=== PATIENT | female | born 1950 | race Caucasian/White ===

== ENCOUNTER 2017-11-27 07:19 | Day surgery (SDC) | payer MEDICARE, OTHER ==
[~2017-11-27] VITALS: Ht 167.6 cm; Wt 99.8 kg
[~2017-11-27 07:19] MED LIST: ALBU90OI6 INH; ALPR.25 PO; AMOX500 PO; ASCO500 PO; ATEN50 PO; BENADRYL25 MG PO; CALCIUM 1,0001 EACH PO; CHOL10002; CLAR500 PO; FENO145 PO; FERR325 PO; FISH1000 PO; FLUT.05NI; HYDRA25 PO; LEVSOD75 PO; LORA10 PO; METF500 PO; METPRE4DP PO; OMEP20ER PO; SERT25 PO; SIMV10 PO; SUCR1 PO; TOCO1000 PO
[2017-11-27] MEDS ORDERED: Aspir 8181 MG (07:54)
[2017-11-27] MEDS ORDERED: LOSA25 (07:55)
== END 2017-11-27 09:39 | disposition home or self-care (01) ==
LOC: ORSCSDS 07:19
PROVIDERS: Internal Medicine Gastroenterology
PROC: 0DBL8ZX Excision of Transverse Colon, Via Natural or Artificial Opening Endoscopic, Diagnostic (ICD-10-PCS; principal; 2017-11-27 08:30)
DX: Z12.11 Encounter for screening for malignant neoplasm of colon (principal); D12.3 Benign neoplasm of transverse colon; Z86.010 Personal history of colon polyps; K64.8 Other hemorrhoids; K64.4 Residual hemorrhoidal skin tags; Z80.0 Family history of malignant neoplasm of digestive organs; E11.9 Type 2 diabetes mellitus without complications; I10 Essential (primary) hypertension; E78.5 Hyperlipidemia, unspecified; K21.9 Gastro-esophageal reflux disease without esophagitis; F32.9 Major depressive disorder, single episode, unspecified; Z79.82 Long term (current) use of aspirin; Z79.84 Long term (current) use of oral hypoglycemic drugs; Z79.899 Other long term (current) drug therapy; K57.30 Diverticulosis of large intestine without perforation or abscess without bleeding
CPT/HCPCS: 82947; 88305; J0330; J1980; J2405

== ENCOUNTER 2018-02-10 02:20 | Emergency (ER) | payer MEDICARE, OTHER ==
[~2018-02-10 02:20] MED LIST changes: +Aspir 8181 MG; +LOSA25
[2018-02-10 06:14] LABS: BASOPHILS ABSOLUTE AUTO 0.08 K/mm3 (0.00-0.23); BASOPHILS PERCENT AUTO 1 % (0-2); EOSINOPHILS ABSOLUTE AUTO 0.36 K/mm3 (0.00-0.68); EOSINOPHILS PERCENT AUTO 5 % (0-6); Hematocrit 38.6 % (33.0-51.0); Hemoglobin 12.7 g/dL (11.5-16.0); IMMATURE GRAN ABSOLUTE AUTO 0.02 K/mm3 (0.00-0.10); IMMATURE GRAN PERCENT AUTO 0 % (0-1); LYMPHOCYTES ABSOLUTE AUTO 1.44 K/mm3 (0.84-5.20); LYMPHOCYTES PERCENT AUTO 19 % (21-46); MONOCYTES ABSOLUTE AUTO 0.68 K/mm3 (0.16-1.47); MONOCYTES PERCENT AUTO 9 % (4-13); Mean Corpuscular HGB 28.9 pg (26.0-34.0); Mean Corpuscular HGB Conc 32.9 g/dL (31.5-36.5); Mean Corpuscular Volume 88 fL (80-100); Mean Platelet Volume 9.3 fL (9.1-12.4); NEUTROPHILS ABSOLUTE AUTO 5.21 K/mm3 (1.96-9.15); NEUTROPHILS PERCENT AUTO 67 % (41-73); Platelet Count 237 K/mm3 (150-400); RDW Coefficient Variation 13.4 % (11.7-14.2); RDW Standard Deviation 43.3 fL (35.1-46.3); Red Blood Cell Count 4.39 M/mm3 (3.80-5.20); White Blood Cell Count 7.79 K/mm3 (4.00-11.30)
[2018-02-10 06:19] LABS: Alanine Aminotransfer (ALT/SGP 63 U/L (12-78); Albumin, Blood 4.1 g/dL (3.4-5.0); Albumin/Globulin Ratio 0.9 (0.8-1.8); Alk Phos 61 U/L (50-136); Anion Gap 8 mmol/L (6-16); Aspartate Aminotrans (AST/SGOT 33 U/L (12-37); Bilirubin, Total 0.3 mg/dL (0.1-1.0); Blood Urea Nitrogen 10 mg/dL (8-24); Bun/Creatinine Ratio 16.3 (12.0-20.0); CO2, Blood 25 mmol/L (21-32); Calcium, Blood 8.7 mg/dL (8.5-10.1); Chloride, Blood 104 mmol/L (98-108); Creatinine, Blood 0.61 mg/dL (0.40-1.00); Globulin, Blood 4.7 g/dL (2.2-4.0); Glomerular Filtration Rate >60 (60-); Glucose, Blood 187 mg/dL (70-99); Potassium, Blood 3.8 mmol/L (3.5-5.5); Sodium, Blood 137 mmol/L (136-145); Total Protein, Blood 8.8 g/dL (6.4-8.2); Troponin I <0.015 ng/mL (0.000-0.040)
== END 2018-02-10 03:45 | disposition home or self-care (01) ==
LOC: ER 02:20
DX: R07.89 Other chest pain (principal); I10 Essential (primary) hypertension
CPT/HCPCS: 71046; 80053; 83690; 84484; 85025; 93005; 93010; 99283

== ENCOUNTER → 2019-02-26 | Outpatient (CLI) | payer MEDICARE, OTHER ==
[~2019-02-26] MED LIST changes: +CEPH500 PO; +HYDCOR10 PO; +Istalol2.5 ML; +LATANOPROST2.5 ML OP; -LOSA25; +LOSA25 PO; +Pyridium100 MG PO
[2019-02-26 10:30] LABS: BASOPHILS ABSOLUTE AUTO 0.06 K/mm3 (0.00-0.23); BASOPHILS PERCENT AUTO 1 % (0-2); EOSINOPHILS ABSOLUTE AUTO 0.27 K/mm3 (0.00-0.68); EOSINOPHILS PERCENT AUTO 3 % (0-6); Hematocrit 38.4 % (33.0-51.0); Hemoglobin 12.3 g/dL (11.5-16.0); IMMATURE GRAN ABSOLUTE AUTO 0.04 K/mm3 (0.00-0.10); IMMATURE GRAN PERCENT AUTO 0 % (0-1); LYMPHOCYTES ABSOLUTE AUTO 1.12 K/mm3 (0.84-5.20); LYMPHOCYTES PERCENT AUTO 12 % (21-46); MONOCYTES ABSOLUTE AUTO 0.93 K/mm3 (0.16-1.47); MONOCYTES PERCENT AUTO 10 % (4-13); Mean Corpuscular HGB 28.5 pg (26.0-34.0); Mean Corpuscular Volume 89 fL (80-100); Mean Platelet Volume 9.3 fL (9.1-12.4); NEUTROPHILS ABSOLUTE AUTO 7.29 K/mm3 (1.96-9.15); NEUTROPHILS PERCENT AUTO 75 % (41-73); Platelet Count 261 K/mm3 (150-400); RDW Coefficient Variation 13.5 % (11.7-14.2); RDW Standard Deviation 43.9 fL (35.1-46.3); Red Blood Cell Count 4.32 M/mm3 (3.80-5.20); White Blood Cell Count 9.71 K/mm3 (4.00-11.30)
[2019-02-26 10:49] LABS: Alanine Aminotransfer (ALT/SGP 46 U/L (12-78); Albumin, Blood 3.9 g/dL (3.4-5.0); Albumin/Globulin Ratio 0.8 (0.8-1.8); Alk Phos 82 U/L (50-136); Anion Gap 7 mmol/L (6-16); Aspartate Aminotrans (AST/SGOT 21 U/L (12-37); Bilirubin, Total 0.4 mg/dL (0.1-1.0); Blood Urea Nitrogen 7 mg/dL (8-24); Bun/Creatinine Ratio 8.7 (12.0-20.0); CO2, Blood 27 mmol/L (21-32); Calcium, Blood 9.2 mg/dL (8.5-10.1); Chloride, Blood 102 mmol/L (98-108); Globulin, Blood 4.7 g/dL (2.2-4.0); Glomerular Filtration Rate >60 (60-); Glucose, Blood 165 mg/dL (70-99); Sodium, Blood 136 mmol/L (136-145); Total Protein, Blood 8.6 g/dL (6.4-8.2)
== END | disposition home or self-care (01) ==
LOC: LAB SHORT 09:17 → LAB 09:17
PROVIDERS: Physician Assistant
DX: R10.84 Generalized abdominal pain (principal)
CPT/HCPCS: 80053; 83690; 85025

== ENCOUNTER 2019-06-20 23:56 | Emergency (ER) | payer MEDICARE, OTHER ==
[~2019-06-20] VITALS: Ht 167.6 cm; Wt 97.5 kg
[~2019-06-20 23:56] MED LIST changes: -Aspir 8181 MG; +Aspir 8181 MG PO; -Istalol2.5 ML; +Istalol2.5 ML LEFTEYE
[2019-06-21 00:23] LABS: BASOPHILS ABSOLUTE AUTO 0.09 K/mm3 (0.00-0.23); BASOPHILS PERCENT AUTO 1 % (0-2); EOSINOPHILS ABSOLUTE AUTO 0.77 K/mm3 (0.00-0.68); EOSINOPHILS PERCENT AUTO 9 % (0-6); Hematocrit 40.6 % (33.0-51.0); IMMATURE GRAN ABSOLUTE AUTO 0.01 K/mm3 (0.00-0.10); IMMATURE GRAN PERCENT AUTO 0 % (0-1); LYMPHOCYTES ABSOLUTE AUTO 2.84 K/mm3 (0.84-5.20); LYMPHOCYTES PERCENT AUTO 34 % (21-46); MONOCYTES ABSOLUTE AUTO 0.68 K/mm3 (0.16-1.47); MONOCYTES PERCENT AUTO 8 % (4-13); Mean Corpuscular HGB 29.1 pg (26.0-34.0); Mean Corpuscular Volume 91 fL (80-100); Mean Platelet Volume 9.7 fL (9.1-12.4); NEUTROPHILS ABSOLUTE AUTO 4.09 K/mm3 (1.96-9.15); NEUTROPHILS PERCENT AUTO 48 % (41-73); Platelet Count 258 K/mm3 (150-400); RDW Coefficient Variation 13.8 % (11.7-14.2); Red Blood Cell Count 4.47 M/mm3 (3.80-5.20); White Blood Cell Count 8.48 K/mm3 (4.00-11.30)
[2019-06-21] MEDS ORDERED: HYDRA25 PO (00:27)
[2019-06-21] MEDS ORDERED: SERT25 PO (00:29)
[2019-06-21] MEDS ORDERED: BENADRYL25 MG PO (00:32)
[2019-06-21] MEDS ORDERED: [UNRECOGNIZED DRUG - OTHER] PO (00:33)
[2019-06-21] MEDS ORDERED: Vitamin B Comple1 EA PO (00:34)
[2019-06-21] MEDS ORDERED: PROBIOTIC1 EAC1 PO (00:34)
[2019-06-21] MEDS ORDERED: FISH OIL 1,001000 MG PO (00:35)
[2019-06-21] MEDS ORDERED: FLAX SEED OIL1000 MG PO (00:36)
[2019-06-21] MEDS ORDERED: [UNRECOGNIZED DRUG - OTHER] PO (00:38)
[2019-06-21] MEDS ORDERED: CALCIUM + D3 E1 EACH PO (00:38)
[2019-06-21] MEDS ORDERED: MULTI VITAMIN1 EACH PO (00:40)
[2019-06-21] MEDS ORDERED: CO Q10200 MG PO (00:40)
[2019-06-21 00:45] LABS: Alanine Aminotransfer (ALT/SGP 79 U/L (12-78); Albumin, Blood 4.5 g/dL (3.4-5.0); Alk Phos 71 U/L (50-136); Anion Gap 8 mmol/L (6-16); Aspartate Aminotrans (AST/SGOT 46 U/L (12-37); Bilirubin, Total 0.4 mg/dL (0.1-1.0); Blood Urea Nitrogen 19 mg/dL (8-24); Bun/Creatinine Ratio 23.1 (12.0-20.0); CO2, Blood 28 mmol/L (21-32); Calcium, Blood 9.3 mg/dL (8.5-10.1); Chloride, Blood 102 mmol/L (98-108); Creatinine, Blood 0.82 mg/dL (0.40-1.00); Globulin, Blood 4.6 g/dL (2.2-4.0); Glomerular Filtration Rate >60 (60-); Glucose, Blood 133 mg/dL (70-99); Potassium, Blood 3.7 mmol/L (3.5-5.5); Sodium, Blood 138 mmol/L (136-145); Total Protein, Blood 9.1 g/dL (6.4-8.2); Troponin I <0.015 ng/mL (0.000-0.040)
[2019-06-21] MEDS ORDERED: LIDO700A20 TOP (02:25)
[2019-06-21] MEDS ORDERED: CYCL10 PO (02:25)
[2019-06-21] MEDS ORDERED: IBUP600 PO (02:25)
== END 2019-06-21 02:40 | disposition home or self-care (01) ==
LOC: ER 23:56
PROVIDERS: Emergency Medicine
DX: I10 Essential (primary) hypertension (principal); Z88.8 Allergy status to other drugs, medicaments and biological substances; Z79.899 Other long term (current) drug therapy; Z79.84 Long term (current) use of oral hypoglycemic drugs; Z79.82 Long term (current) use of aspirin; D64.9 Anemia, unspecified; E11.9 Type 2 diabetes mellitus without complications
CPT/HCPCS: 36415; 71046; 80053; 84484; 85025; 85379; 93005; 93010; 96374; 96375; 99285-25; J0360; J1885; J2060; J3010

== ENCOUNTER → 2020-05-11 | Outpatient (CLI) | payer MEDICARE ==
[~2020-05-11] MED LIST changes: +CALCIUM + D3 E1 EACH PO; +CO Q10200 MG PO; +CYCL10 PO; +FISH OIL 1,001000 MG PO; +FLAX SEED OIL1000 MG PO; +IBUP600 PO; +LIDO700A20 TOP; +MULTI VITAMIN1 EACH PO; +PROBIOTIC1 EAC1 PO; +Vitamin B Comple1 EA PO; +[UNRECOGNIZED DRUG - OTHER] PO; +[UNRECOGNIZED DRUG - OTHER] PO
== END | disposition home or self-care (01) ==
LOC: LAB SHORT 15:40 → LAB 15:40
DX: R53.83 Other fatigue (principal); R00.2 Palpitations
CPT/HCPCS: 84443

== ENCOUNTER 2020-06-07 03:25 | Observation (INO) | payer MEDICARE ==
[~2020-06-07] VITALS: Ht 167.6 cm; Wt 97.1 kg
[~2020-06-07 03:25] MED LIST changes: -CALCIUM + D3 E1 EACH PO; -CHOL10002; +Calcium + Vita1 EACH PO; -FISH OIL 1,001000 MG PO; +FISH OIL 1,201200 MG PO; +LATA.005SO BOTHEYES; -LATANOPROST2.5 ML OP; +PROBIOTIC1 EA10 PO; -PROBIOTIC1 EAC1 PO; +VITAMIN D325 MC3 PO
[2020-06-07] MEDS ORDERED: GLIM4 PO (03:43)
[2020-06-07] MEDS ORDERED: ATIVAN0.5 MG PO (03:45)
[2020-06-07] MEDS ORDERED: ONDA4ODT MM (03:46)
[2020-06-07] MEDS ORDERED: CODACE30 PO (03:46)
[2020-06-07] MEDS ORDERED: CLAR500 PO (03:47)
[2020-06-07] MEDS ORDERED: CEPH500 PO (03:47)
[2020-06-07] MEDS ORDERED: ACYC400 PO (03:48)
[2020-06-07] MEDS ORDERED: Loratadine10 MG PO (03:48)
[2020-06-07 03:56] LABS: BASOPHILS ABSOLUTE AUTO 0.08 K/mm3 (0.00-0.23); BASOPHILS PERCENT AUTO 1 % (0-2); EOSINOPHILS ABSOLUTE AUTO 0.38 K/mm3 (0.00-0.68); EOSINOPHILS PERCENT AUTO 6 % (0-6); Hematocrit 38.7 % (33.0-51.0); Hemoglobin 12.4 g/dL (11.5-16.0); IMMATURE GRAN ABSOLUTE AUTO 0.01 K/mm3 (0.00-0.10); IMMATURE GRAN PERCENT AUTO 0 % (0-1); LYMPHOCYTES ABSOLUTE AUTO 2.25 K/mm3 (0.84-5.20); LYMPHOCYTES PERCENT AUTO 38 % (21-46); MONOCYTES ABSOLUTE AUTO 0.61 K/mm3 (0.16-1.47); MONOCYTES PERCENT AUTO 10 % (4-13); Mean Corpuscular HGB 29.1 pg (26.0-34.0); Mean Corpuscular Volume 91 fL (80-100); Mean Platelet Volume 9.6 fL (9.1-12.4); NEUTROPHILS ABSOLUTE AUTO 2.57 K/mm3 (1.96-9.15); NEUTROPHILS PERCENT AUTO 44 % (41-73); Platelet Count 207 K/mm3 (150-400); RDW Coefficient Variation 14.3 % (11.7-14.2); RDW Standard Deviation 47.5 fL (35.1-46.3); Red Blood Cell Count 4.26 M/mm3 (3.80-5.20)
[2020-06-07 04:16] LABS: Alanine Aminotransfer (ALT/SGP 84 U/L (12-78); Albumin, Blood 4.3 g/dL (3.4-5.0); Alk Phos 60 U/L (50-136); Anion Gap 7 mmol/L (6-16); Aspartate Aminotrans (AST/SGOT 50 U/L (12-37); Bilirubin, Total 0.4 mg/dL (0.1-1.0); Blood Urea Nitrogen 16 mg/dL (8-24); Bun/Creatinine Ratio 19.1 (12.0-20.0); CO2, Blood 27 mmol/L (21-32); Calcium, Blood 9.3 mg/dL (8.5-10.1); Chloride, Blood 100 mmol/L (98-108); Creatinine, Blood 0.84 mg/dL (0.40-1.00); Globulin, Blood 4.2 g/dL (2.2-4.0); Glomerular Filtration Rate >60 (60-); Glucose, Blood 157 mg/dL (70-99); Potassium, Blood 3.6 mmol/L (3.5-5.5); Sodium, Blood 134 mmol/L (136-145); Total Protein, Blood 8.5 g/dL (6.4-8.2); Troponin I <0.015 ng/mL (0.000-0.040)
[2020-06-07 08:07] LABS: CPK Creatine Kinase 77 U/L (26-193); Troponin I <0.015 ng/mL (0.000-0.040)
--- NOTE | 2020-06-07 12:02 | NUR ---
Echocardiogram completed.
[2020-06-07] MEDS ORDERED: CHROMIUM PIC1000 MC1 PO (12:19)
[2020-06-07 15:44] LABS: CPK Creatine Kinase 69 U/L (26-193)
[2020-06-07 15:45] LABS: Troponin I <0.015 ng/mL (0.000-0.040)
--- NOTE | 2020-06-07 18:02 | NUR ---
SHIFT SUMMARY: ED ADMIT ARRIVED TO ROOM VIA W/C AT 1205. REPORT FROM JOSELIN IN ED. PT IS A/O X4. PT REPORTS HER CHEST PAIN REMAINS A "LITTLE PAIN THAT COMES AND GOES ABOUT EVERY 15 MINUTES JUST LIKE IT HAS ALL DAY." TELE PLACED, NSR PER PCU SOLO MUSICIAN. NO ACUTE EVENTS TO REPORT THIS SHIFT. PLAN IS FOR A STRESS TEST TO START TOMORROW AT 1230; EARLY BREAKFAST TRAY ORDERED. WILL CONTINUE TO MONITOR AND REPORT TO ONCOMING SHIFT.
[2020-06-08 04:54] LABS: BASOPHILS ABSOLUTE AUTO 0.07 K/mm3 (0.00-0.23); BASOPHILS PERCENT AUTO 1 % (0-2); EOSINOPHILS ABSOLUTE AUTO 0.28 K/mm3 (0.00-0.68); EOSINOPHILS PERCENT AUTO 5 % (0-6); Hematocrit 37.4 % (33.0-51.0); Hemoglobin 12.1 g/dL (11.5-16.0); IMMATURE GRAN ABSOLUTE AUTO 0.01 K/mm3 (0.00-0.10); IMMATURE GRAN PERCENT AUTO 0 % (0-1); LYMPHOCYTES ABSOLUTE AUTO 1.63 K/mm3 (0.84-5.20); LYMPHOCYTES PERCENT AUTO 30 % (21-46); MONOCYTES ABSOLUTE AUTO 0.61 K/mm3 (0.16-1.47); MONOCYTES PERCENT AUTO 11 % (4-13); Mean Corpuscular HGB 28.6 pg (26.0-34.0); Mean Corpuscular HGB Conc 32.4 g/dL (31.5-36.5); Mean Corpuscular Volume 88 fL (80-100); Mean Platelet Volume 9.8 fL (9.1-12.4); NEUTROPHILS ABSOLUTE AUTO 2.88 K/mm3 (1.96-9.15); NEUTROPHILS PERCENT AUTO 53 % (41-73); Platelet Count 205 K/mm3 (150-400); RDW Coefficient Variation 14.3 % (11.7-14.2); RDW Standard Deviation 45.8 fL (35.1-46.3); Red Blood Cell Count 4.23 M/mm3 (3.80-5.20); White Blood Cell Count 5.48 K/mm3 (4.00-11.30)
[2020-06-08 05:16] LABS: Alanine Aminotransfer (ALT/SGP 89 U/L (12-78); Albumin/Globulin Ratio 0.9 (0.8-1.8); Alk Phos 55 U/L (50-136); Anion Gap 8 mmol/L (6-16); Aspartate Aminotrans (AST/SGOT 66 U/L (12-37); Bilirubin, Total 0.6 mg/dL (0.1-1.0); Blood Urea Nitrogen 14 mg/dL (8-24); Bun/Creatinine Ratio 18.9 (12.0-20.0); CO2, Blood 26 mmol/L (21-32); Chloride, Blood 102 mmol/L (98-108); Creatinine, Blood 0.74 mg/dL (0.40-1.00); Globulin, Blood 4.3 g/dL (2.2-4.0); Glomerular Filtration Rate >60 (60-); Glucose, Blood 166 mg/dL (70-99); Potassium, Blood 3.8 mmol/L (3.5-5.5); Sodium, Blood 136 mmol/L (136-145); Total Protein, Blood 8.3 g/dL (6.4-8.2)
--- NOTE | 2020-06-08 07:29 | NUR ---
06/07/202129 Pt is alert and oriented. Pt states she is still having the left chest "cramping" that lasts for 2-3 seconds and reaccures every 15-20 minutes. Pt BP was 150/91. Medicated with apresoline 10 mg and BP was 134/88 when rechecked. Pt is resting in room, ativan was given for anxiety.
--- NOTE | 2020-06-08 07:32 | NUR ---
Rn summary: Patient remains alert and oriented. Pt states she slept well and has had no chest cramping since sleeping. Pt did have apresoline repeated for BP of 140/90. Pt did c/o headache 4/10 which she says is unusual for her. Medicated at 0558 after hospitalist was reached. Pain up to 5/10 and pt is nausiated. Pt was medicated with tylenol 1000 mg and Zofran 4mg, and ice pack to back of neck. Nausia has resolved and headache has improved. Plan for stress test at noon. Call light in reach. Report given to Gurvinder TOLBERT.
--- NOTE | 2020-06-08 14:22 | NUR ---
Patient is sitting up in bed and alert. Patient tells me about her medical issues and plan of care. Patient shares about her family, her teresa and her career. Patient tells me how glorious it has been to be in the hospital and have a break from her busy life and responsibilities. Patient is thankful for the one visitor a day rule and the quiet this has afforded her. I listen empathically, reinforce helpful attitudes and practices, encourage self-care and provide prayer. Patient responds well and shows signs of an elevated mood. I will continue to remain available to patient and family.
--- NOTE | 2020-06-08 17:03 | NUR ---
SHIFT SUMMARY: PT COMPLETED RESTING PORTION OF HER STRESS TEST TODAY. PART 2 WILL BE TOMORROW IN THE AM (EXACT TIME NOT CONFIRMED). PT AWARE SHE IS TO BE NPO AT MIDNIGHT EXCEPT WATER AND MEDS WELL NO CAFFEINE AFTER 2100 THIS EVENING. PT C/O HEADACHE AND NAUSEA OFF AND ON THROUGHOUT THE DAY. MEDICATED PER EMAR. PT STATES SHE THINKS HER HIGH BLOOD PRESSURE IS THE PROBLEM AND REQUESTED A CHANGE TO HER BP MEDS. HYDRALAZINE INCREASED FROM 10 MG TO 25 MG PO Q6H PRN SBP >140 AND PT IS HAPPY WITH THIS CHANGE. BLOOD SUGARS THIS AM AND AFTERNOON WERE IN THE 200'S; DIET CHANGED TO ADA/CARDIAC. PT CURRENTLY RESTING IN BED, CALL LIGHT IN REACH. WILL CONTINUE TO MONITOR AND REPORT TO ONCOMING RN.
--- NOTE | 2020-06-09 06:12 | NUR ---
SHIFT SUMMARY: PT IS ALERT AND ORIENTED. PT IS CALM AND COOPERATIVE WITH CARE. PT IS UP INDEPENDENTLY IN THE ROOM. PT CALLS APPROPRIATELY. PT REPORTS NAUSEA ON ONE OCCASION, GAVE PRN ZOFRAN. PT REPORTS HEADACHE ON SEVERAL OCCASIONS, GAVE PRN IBUPROFEN AND TYLENOL. PT NPO AFTER MIDNIGHT FOR 2ND PART OF STRESS TEST TODAY, ALSO NO CAFFEINE. PT DENIES ANY SOB OR VOMITING. PT SLEPT MUCH OF THE NIGHT WHEN NOT DISTURBED. NO ACUTE CHANGES OR COMPLICATIONS OVERNIGHT. BED IN LOW POSITION, CALL LIGHT WITHIN REACH. WILL REPORT TO DAY NURSE.
--- NOTE | 2020-06-09 07:55 | NUR ---
NOTIFIED DR. PANDYA OF BP 159/103. RECEIVED VERBAL ORDER TO CHANGE PARAMETER FROM "> SBP 140" TO "> SBP 160" FOR HYDRALIZINE
--- NOTE | 2020-06-09 10:27 | NUR ---
NOTIFIED DR. PANDYA OF BP 186/103 AND C/O HEADACHE. PO HYDRALIZINE CHANGED TO IV Q4P AND TORADOL 15MG IV NOW VIA VERBAL ORDER.
--- NOTE | 2020-06-09 10:51 | NUR ---
RECEIVED VERBAL ORDER FROM DR. PANDYA FOR ONE TIME DOSE OF ATIVAN IV 0.5MG FOR PREPROCEDURE.
--- NOTE | 2020-06-09 11:47 | NUR ---
DR. PANDYA NOTIFIED RE BP 159/96, HR 106. ORDER RECEIVED TO START ATENOLOL NOW AND BID. PER DR. PANDYA, PATIENT IS OKAY TO HAVE LEXISCAN STRESS TEST INSTEAD TREADMILL.
--- NOTE | 2020-06-09 18:42 | NUR ---
Discharge Summary A/Ox4, patient has been very anxious today stating her normal BP is 110/84. Received multiple orders to control blood pressure. Patient has been so appreciative of the care received as her blood pressure is more controlled t/o the day. Medicated x 3 for SILVA. Once blood pressure improved, SILVA symptoms dissipated per patient. Discharged to home. Reviewed discharge paperwork with patient. No questions at this time. IV removed, WNL. Referrals completed by desk assistant Alex. Escorted by VOCATIONAL TECHNICAL EDUCATION DIRECTOR via w/c, transported home via personal vehicle. Personal property bagged by patient and sent home.
== END 2020-06-09 18:39 | disposition home or self-care (01) ==
LOC: ER 03:25 → ERHOLD 03:26 → MEDS 12:05
PROVIDERS: Emergency Medicine; ADMIT Internal Medicine
DX: R07.9 Chest pain, unspecified (principal); I10 Essential (primary) hypertension; E78.5 Hyperlipidemia, unspecified; E11.9 Type 2 diabetes mellitus without complications; E03.9 Hypothyroidism, unspecified; F32.9 Major depressive disorder, single episode, unspecified; F41.9 Anxiety disorder, unspecified; Z79.82 Long term (current) use of aspirin; Z79.899 Other long term (current) drug therapy; Z79.84 Long term (current) use of oral hypoglycemic drugs; Z88.8 Allergy status to other drugs, medicaments and biological substances; F43.10 Post-traumatic stress disorder, unspecified; Z87.42 Personal history of other diseases of the female genital tract
CPT/HCPCS: 36415; 71046; 78452; 80053; 82550; 82947; 83880; 84484; 85025; 93005; 93010; 93017; 93306; 96372; 96374; 96375; 96376; 99285-25; A9270-GY; A9500; G0378; J0360; J0706; J1650; J1885; J2060; J2405; J2785; Q0163

== ENCOUNTER 2020-09-03 21:36 | Emergency (ER) | payer MEDICARE ==
[~2020-09-03] VITALS: Ht 167.6 cm; Wt 97.1 kg
[~2020-09-03 21:36] MED LIST changes: +ACYC400 PO; +ATIVAN0.5 MG PO; +CHROMIUM PIC1000 MC1 PO; +CODACE30 PO; +GLIM4 PO; +Loratadine10 MG PO; +ONDA4ODT MM
== END 2020-09-04 00:01 | disposition home or self-care (01) ==
LOC: ER 21:36
DX: R05 Cough (principal); R07.0 Pain in throat; I10 Essential (primary) hypertension; E78.5 Hyperlipidemia, unspecified; E03.9 Hypothyroidism, unspecified; E11.9 Type 2 diabetes mellitus without complications; F32.9 Major depressive disorder, single episode, unspecified; F41.9 Anxiety disorder, unspecified; Z79.899 Other long term (current) drug therapy; Z79.84 Long term (current) use of oral hypoglycemic drugs; Z79.82 Long term (current) use of aspirin; Z88.8 Allergy status to other drugs, medicaments and biological substances
CPT/HCPCS: 36415; 96374; 99283-25; J1100

== ENCOUNTER 2021-02-26 08:31 | Day surgery (SDC) | payer MEDICARE ==
[~2021-02-26] VITALS: Ht 167.6 cm; Wt 98.9 kg
--- NOTE | 2021-02-26 09:07 | NUR ---
02/26/21 0907 Waleska Ribeiro 1 TRY RIGHT HAND VALVE BLEW 2 TRY RIGHT WRIST VALVE
== END 2021-02-26 10:18 | disposition home or self-care (01) ==
LOC: ORSCSDS 08:31
PROVIDERS: Internal Medicine Gastroenterology
PROC: 0DBL8ZX Excision of Transverse Colon, Via Natural or Artificial Opening Endoscopic, Diagnostic (ICD-10-PCS; principal; 2021-02-26 09:45)
DX: Z12.11 Encounter for screening for malignant neoplasm of colon (principal); Z86.010 Personal history of colon polyps; D12.3 Benign neoplasm of transverse colon; K64.8 Other hemorrhoids; E11.9 Type 2 diabetes mellitus without complications; I10 Essential (primary) hypertension; D64.9 Anemia, unspecified; K21.9 Gastro-esophageal reflux disease without esophagitis; E55.9 Vitamin D deficiency, unspecified; F32.9 Major depressive disorder, single episode, unspecified; Z79.899 Other long term (current) drug therapy
CPT/HCPCS: 82947; 88305; J2704; J7120

== ENCOUNTER 2021-06-23 15:58 | Emergency (ER) | payer MEDICARE ==
[~2021-06-23] VITALS: Ht 167.6 cm; Wt 97.5 kg
[2021-06-23] MEDS ORDERED: METF500 PO (18:06)
[2021-06-23] MEDS ORDERED: GLIM4 PO (18:06)
[2021-06-23] MEDS ORDERED: OMEP20ER PO (18:06)
[2021-06-23] MEDS ORDERED: ATEN25 PO (18:06)
[2021-06-23] MEDS ORDERED: SERT25 PO (18:07)
[2021-06-23] MEDS ORDERED: ZOCOR20 MG PO (18:07)
[2021-06-23] MEDS ORDERED: HYDCOR10 PO (18:07)
[2021-06-23] MEDS ORDERED: LORA.5 PO (18:07)
[2021-06-23] MEDS ORDERED: LEVSOD75 PO (18:07)
[2021-06-23] MEDS ORDERED: PIOG30 PO (18:07)
[2021-06-23] MEDS ORDERED: LATANOPROST 0.7.5 M3 (18:08)
== END 2021-06-23 18:28 | disposition home or self-care (01) ==
LOC: ER 15:58
DX: S80.11XA Contusion of right lower leg, initial encounter (principal); M79.661 Pain in right lower leg; Z88.8 Allergy status to other drugs, medicaments and biological substances; Z79.899 Other long term (current) drug therapy; Z79.84 Long term (current) use of oral hypoglycemic drugs; W22.8XXA Striking against or struck by other objects, initial encounter
CPT/HCPCS: 93971; 99283-25

== ENCOUNTER → 2022-02-03 | Outpatient (CLI) | payer MEDICARE ==
[~2022-02-03] MED LIST changes: +ATEN25 PO; +LATANOPROST 0.7.5 M3; +LORA.5 PO; +PIOG30 PO; +ZOCOR20 MG PO
[2022-02-03 11:51] LABS: Source, Urine Clean Catch
[2022-02-03 12:55] LABS: Appearance, Urine Clear (Clear); Blood, Urine 4+ (Neg); Glucose Qualitative, Urine Neg (Neg); Ketones, Urine Neg (Neg); Leukocyte Esterase, Urine 1+ (Neg); Nitrite, Urine Pos (Neg); Protein, Urine 2+ (Neg); Specific Gravity, Urine 1.015 (1.003-1.022); Urobilinogen, Urine 3+ (Normal)
[2022-02-03 13:06] LABS: Bilirubin, Urine 3+ (Neg); Color, Urine Amber (P-Yellow)
[2022-02-03 13:07] LABS: Bacteria Rare /hpf; Squamous Epithelial Cells Few /hpf (Few)
== END | disposition home or self-care (01) ==
LOC: LAB 11:50 → LAB SHORT 11:50 → LAB FUT 02-03 11:20
PROVIDERS: Physician Assistant
DX: N39.0 Urinary tract infection, site not specified (principal)
CPT/HCPCS: 81001; 87086

== ENCOUNTER → 2022-06-10 | Outpatient (CLI) | payer MEDICARE ==
[2022-06-10 11:39] LABS: Albumin, Blood 4.4 g/dL (3.4-5.0); Bilirubin, Total 0.5 mg/dL (0.1-1.0); Bun/Creatinine Ratio 21.8 (12.0-20.0); Calcium, Blood 9.7 mg/dL (8.5-10.1); Creatinine, Blood 0.64 mg/dL (0.40-1.00); Globulin, Blood 4.2 g/dL (2.2-4.0); Potassium, Blood 4.4 mmol/L (3.5-5.5); Total Protein, Blood 8.6 g/dL (6.4-8.2)
== END | disposition home or self-care (01) ==
LOC: LAB SHORT 10:30 → LAB 10:30
PROVIDERS: Nurse Practitioner Family
DX: E86.0 Dehydration (principal); E87.1 Hypo-osmolality and hyponatremia
CPT/HCPCS: 80053

== ENCOUNTER → 2022-08-04 | Outpatient (CLI) | payer MEDICARE ==
[2022-08-04 13:04] LABS: Albumin, Blood 4.4 g/dL (3.4-5.0); Albumin/Globulin Ratio 1.1 (0.8-1.8); Bilirubin, Total 0.4 mg/dL (0.1-1.0); Bun/Creatinine Ratio 21.3 (12.0-20.0); Calcium, Blood 9.7 mg/dL (8.5-10.1); Creatinine, Blood 0.8 mg/dL (0.40-1.00); Globulin, Blood 3.9 g/dL (2.2-4.0); Potassium, Blood 4.8 mmol/L (3.5-5.5); Total Protein, Blood 8.3 g/dL (6.4-8.2)
== END | disposition home or self-care (01) ==
LOC: LAB SHORT 10:28 → LAB FUT 07-14 15:00
PROVIDERS: Naturopath
DX: E87.1 Hypo-osmolality and hyponatremia (principal)
CPT/HCPCS: 36415; 80053

== ENCOUNTER → 2023-07-23 | Outpatient (CLI) | payer MEDICARE | LOC: LAB 10:00 → LAB SHORT 10:00 | DX: N39.0 Urinary tract infection, site not specified (principal) | CPT/HCPCS: 87086 ==

== ENCOUNTER → 2023-08-04 | Outpatient (CLI) | payer MEDICARE | END | disposition home or self-care (01) | LOC: LAB SHORT 14:30 → LAB 14:30 | DX: R30.0 Dysuria (principal); R35.0 Frequency of micturition | CPT/HCPCS: 87086 ==

== ENCOUNTER → 2023-08-28 | Outpatient (CLI) | payer MEDICARE | LOC: LAB 10:16 → LAB SHORT 10:16 | DX: R30.0 Dysuria (principal) | CPT/HCPCS: 87086 ==

== ENCOUNTER → 2023-09-03 | Outpatient (CLI) | payer MEDICARE ==
[~2023-09-03] MED LIST changes: +PHENA200 PO
[2023-09-03 13:09] LABS: Appearance, Urine Clear (Clear); Bilirubin, Urine Neg (Neg); Blood, Urine Neg (Neg); Color, Urine Yellow (P-Yellow); Glucose Qualitative, Urine Neg (Neg); Ketones, Urine Neg (Neg); Leukocyte Esterase, Urine Neg (Neg); Nitrite, Urine Neg (Neg); Protein, Urine 1+ (Neg); Specific Gravity, Urine 1.015 (1.003-1.022); Urobilinogen, Urine NORM (Normal)
== END | disposition home or self-care (01) ==
LOC: LAB 08:53 → LAB SHORT 08:53
PROVIDERS: Urology
DX: N39.0 Urinary tract infection, site not specified (principal)
CPT/HCPCS: 87086

== ENCOUNTER 2023-09-07 18:25 | Emergency (ER) | payer MEDICARE ==
[~2023-09-07] VITALS: Ht 167.6 cm; Wt 98.0 kg
[~2023-09-07 18:25] MED LIST changes: -PHENA200 PO
[2023-09-07 18:33] VITALS: BP 165/85
[2023-09-07 19:04] LABS: BASOPHILS ABSOLUTE AUTO 0.07 K/mm3 (0.00-0.23); BASOPHILS PERCENT AUTO 1 % (0-2); EOSINOPHILS ABSOLUTE AUTO 0.48 K/mm3 (0.00-0.68); EOSINOPHILS PERCENT AUTO 5 % (0-6); Hematocrit 35.6 % (33.0-51.0); Hemoglobin 11.8 g/dL (11.5-16.0); IMMATURE GRAN ABSOLUTE AUTO 0.03 K/mm3 (0.00-0.10); IMMATURE GRAN PERCENT AUTO 0 % (0-1); LYMPHOCYTES ABSOLUTE AUTO 1.56 K/mm3 (0.84-5.20); LYMPHOCYTES PERCENT AUTO 16 % (21-46); MONOCYTES ABSOLUTE AUTO 0.97 K/mm3 (0.16-1.47); MONOCYTES PERCENT AUTO 10 % (4-13); Mean Corpuscular HGB 29.6 pg (26.0-34.0); Mean Corpuscular HGB Conc 33.1 g/dL (31.5-36.5); Mean Corpuscular Volume 89 fL (80-100); Mean Platelet Volume 9.2 fL (9.1-12.4); NEUTROPHILS ABSOLUTE AUTO 6.69 K/mm3 (1.96-9.15); NEUTROPHILS PERCENT AUTO 68 % (41-73); Platelet Count 258 K/mm3 (150-400); RDW Coefficient Variation 13.8 % (11.7-14.2); RDW Standard Deviation 45.2 fL (35.1-46.3); Red Blood Cell Count 3.98 M/mm3 (3.80-5.20)
[2023-09-07 19:23] LABS: Albumin, Blood 4.2 g/dL (3.4-5.0); Albumin/Globulin Ratio 0.9 (0.8-1.8); Bilirubin, Total 0.3 mg/dL (0.1-1.0); Bun/Creatinine Ratio 18.2 (12.0-20.0); Calcium, Blood 9.3 mg/dL (8.5-10.1); Creatinine, Blood 0.94 mg/dL (0.40-1.00); Globulin, Blood 4.7 g/dL (2.2-4.0); Potassium, Blood 4.2 mmol/L (3.5-5.5); Total Protein, Blood 8.9 g/dL (6.4-8.2)
[2023-09-07] MEDS ORDERED: PHENA200 PO (22:56)
[2023-09-07] MEDS ORDERED: CEPH500 PO (22:56)
== END 2023-09-07 23:54 | disposition home or self-care (01) ==
LOC: ER 18:25
PROVIDERS: Student in an Organized Health Care Education/Training Program
DX: N12 Tubulo-interstitial nephritis, not specified as acute or chronic (principal)
CPT/HCPCS: 80053; 81001; 85025; 87077; 87086; 87186; 96365; 99284-25; A9270; J0696

== ENCOUNTER → 2023-09-07 | Outpatient (CLI) | payer MEDICARE ==
[2023-09-07 09:26] LABS: Source, Urine Voided
[2023-09-07 10:33] LABS: Bilirubin, Urine Neg (Neg); Blood, Urine 5+ (Neg); Glucose Qualitative, Urine Neg (Neg); Ketones, Urine Neg (Neg); Leukocyte Esterase, Urine 3+ (Neg); Nitrite, Urine Neg (Neg); Protein, Urine 2+ (Neg); Specific Gravity, Urine 1.015 (1.003-1.022); Urobilinogen, Urine NORM (Normal)
[2023-09-07 10:50] LABS: Appearance, Urine Cloudy (Clear); Bacteria Few /hpf; Color, Urine Yellow (P-Yellow); Red Blood Cells, Urine TNTC /hpf (0-2); Squamous Epithelial Cells Not Seen /hpf (Few); White Blood Cells, Urine TNTC /hpf (0-5)
== END ==
LOC: LAB SHORT 09:24 → LAB 09:24
PROVIDERS: Urology
DX: N39.0 Urinary tract infection, site not specified (principal)
CPT/HCPCS: 81001; 87077; 87086; 87186

== ENCOUNTER → 2023-09-16 | Outpatient (CLI) | payer MEDICARE ==
[~2023-09-16] MED LIST changes: +PHENA200 PO
[2023-09-16 15:58] LABS: Appearance, Urine Clear (Clear); Bilirubin, Urine Neg (Neg); Blood, Urine Neg (Neg); Color, Urine Yellow (P-Yellow); Glucose Qualitative, Urine Neg (Neg); Ketones, Urine Neg (Neg); Leukocyte Esterase, Urine Neg (Neg); Nitrite, Urine Neg (Neg); Protein, Urine Neg (Neg); Specific Gravity, Urine 1.005 (1.003-1.022); Urobilinogen, Urine NORM (Normal)
== END | disposition home or self-care (01) ==
LOC: LAB 15:06 → LAB SHORT 15:06
PROVIDERS: Urology
DX: N39.0 Urinary tract infection, site not specified (principal)
CPT/HCPCS: 81003; 87086

== ENCOUNTER → 2023-10-20 | Outpatient (CLI) | payer MEDICARE ==
[2023-10-20 16:32] LABS: Appearance, Urine Clear (Clear); Blood, Urine Neg (Neg); Glucose Qualitative, Urine 2+ (Neg); Ketones, Urine Neg (Neg); Leukocyte Esterase, Urine 1+ (Neg); Nitrite, Urine Pos (Neg); Protein, Urine Neg (Neg); Urobilinogen, Urine 1+ (Normal)
[2023-10-20 16:57] LABS: Bilirubin, Urine 1+ (Neg); Color, Urine Orange (P-Yellow)
[2023-10-20 16:59] LABS: Bacteria Many /hpf; Squamous Epithelial Cells Mod /hpf (Few); Transitional Epithelial Cells Few /hpf (0-Rare)
== END ==
LOC: LAB 14:05 → LAB SHORT 14:05
PROVIDERS: Urology
DX: N39.0 Urinary tract infection, site not specified (principal)
CPT/HCPCS: 81001; 87086

== ENCOUNTER → 2023-11-02 | Outpatient (CLI) | payer MEDICARE ==
[2023-11-02 18:41] LABS: Microalb/Creat Ratio UR, Rand Unable to Calculate mg/g (0.000-30.000); Microalbumin, Random Urine <5.000 mg/L (0.000-20.000)
== END ==
LOC: LAB 14:40 → LAB SHORT 14:40
PROVIDERS: Internal Medicine Endocrinology, Diabetes & Metabolism
DX: E11.65 Type 2 diabetes mellitus with hyperglycemia (principal)
CPT/HCPCS: 82043; 82570

== ENCOUNTER → 2023-11-03 | Outpatient (CLI) | payer MEDICARE ==
[2023-11-07 05:46] LABS: CREATININE,URINE - PER VOLUME 50 mg/dL; DOPAMINE,URINE - PER VOLUME 59 ug/L; DOPAMINE,URINE - RATIO TO CRT 118 ug/g CRT (0-250); EPINEPHRINE,URINE - PER VOLUME 2 ug/L; EPINEPHRINE,URN - RATIO TO CRT 4 ug/g CRT (0-20); HOURS COLLECTED Not Provided hr; NOREPINEPHRINE,UR - PER VOLUME 22 ug/L; NOREPINEPHRINE,URN/CRT RATIO 44 ug/g CRT (0-45); TOTAL VOLUME Not Provided mL
[2023-11-09 05:37] LABS: CREATININE,URINE - PER VOLUME 50 mg/dL; HOURS COLLECTED Not Provided hr; METANEPHRINE,UR - RATIO TO CRT 62 ug/g CRT (0-300); METANEPHRINE,URN - PER VOLUME 31 ug/L; NORMETANEPHRINE,U - PER VOLUME 166 ug/L; NORMETANEPHRINE,URN/CRT RATIO 332 ug/g CRT (0-400); TOTAL VOLUME Not Provided mL
== END ==
LOC: LAB SHORT 13:35 → LAB 13:35
PROVIDERS: Internal Medicine Endocrinology, Diabetes & Metabolism
DX: I15.9 Secondary hypertension, unspecified (principal)
CPT/HCPCS: 82384; 83835

== ENCOUNTER → 2023-12-07 | Outpatient (CLI) | payer MEDICARE ==
[2023-12-07 18:47] LABS: Appearance, Urine Cloudy (Clear); Bilirubin, Urine Neg (Neg); Blood, Urine 3+ (Neg); Color, Urine Yellow (P-Yellow); Glucose Qualitative, Urine Neg (Neg); Ketones, Urine Neg (Neg); Leukocyte Esterase, Urine 3+ (Neg); Nitrite, Urine Pos (Neg); Protein, Urine 2+ (Neg); Specific Gravity, Urine 1.015 (1.003-1.022); Urobilinogen, Urine NORM (Normal)
[2023-12-07 18:55] LABS: Bacteria Many /hpf; Red Blood Cells, Urine 0-2 /hpf (0-2); Squamous Epithelial Cells Rare /hpf (Few); Transitional Epithelial Cells Rare /hpf (0-Rare); White Blood Cells, Urine TNTC /hpf (0-5)
== END ==
LOC: LAB SHORT 16:00 → LAB 16:00
PROVIDERS: Urology
DX: N39.0 Urinary tract infection, site not specified (principal)
CPT/HCPCS: 81001; 87077; 87086; 87186

== ENCOUNTER → 2023-12-31 | Outpatient (CLI) | payer MEDICARE ==
[2023-12-31 12:19] LABS: Appearance, Urine Clear (Clear); Bilirubin, Urine Neg (Neg); Blood, Urine Neg (Neg); Color, Urine Yellow (P-Yellow); Glucose Qualitative, Urine Neg (Neg); Ketones, Urine Neg (Neg); Leukocyte Esterase, Urine 3+ (Neg); Nitrite, Urine Neg (Neg); Protein, Urine Neg (Neg); Specific Gravity, Urine 1.015 (1.003-1.022); Urobilinogen, Urine NORM (Normal); pH, Urine 6.5 (5.0-8.0)
[2023-12-31 12:52] LABS: Bacteria Few /hpf; Red Blood Cells, Urine 0-2 /hpf (0-2); Squamous Epithelial Cells Few /hpf (Few); Transitional Epithelial Cells Few /hpf (0-Rare)
== END ==
LOC: LAB 09:40 → LAB SHORT 09:40
PROVIDERS: Urology
DX: N39.0 Urinary tract infection, site not specified (principal)
CPT/HCPCS: 81001; 87077; 87086; 87186

== ENCOUNTER → 2024-01-19 | Outpatient (CLI) | payer MEDICARE ==
[2024-01-22 13:44] LABS: CREATININE,URINE - PER 24H 1178 mg/d (500-1400); CREATININE,URINE - PER VOLUME 38 mg/dL; HOURS COLLECTED 24 hr; METANEPHRINE,UR - RATIO TO CRT 47 ug/g CRT (0-300); METANEPHRINE,URINE - PER 24H 56 ug/d (36-229); METANEPHRINE,URN - PER VOLUME 18 ug/L; NORMETANEPHRINE,U - PER VOLUME 95 ug/L; NORMETANEPHRINE,URN - PER 24H 294 ug/d (95-650); NORMETANEPHRINE,URN/CRT RATIO 250 ug/g CRT (0-400); TOTAL VOLUME 3100 mL
[2024-01-23 10:31] LABS: CREATININE,URINE - PER 24H 1178 mg/d (500-1400); CREATININE,URINE - PER VOLUME 38 mg/dL; DOPAMINE,URINE - PER 24H 62 ug/d (71-485); DOPAMINE,URINE - PER VOLUME 20 ug/L; DOPAMINE,URINE - RATIO TO CRT 53 ug/g CRT (0-250); EPINEPHRINE,URINE - PER 24H <3 ug/d (1-14); EPINEPHRINE,URINE - PER VOLUME <1 ug/L; EPINEPHRINE,URN - RATIO TO CRT <3 ug/g CRT (0-20); HOURS COLLECTED 24 hr; NOREPINEPHRINE,UR - PER VOLUME 7 ug/L; NOREPINEPHRINE,URINE - PER 24H 22 ug/d (14-120); NOREPINEPHRINE,URN/CRT RATIO 18 ug/g CRT (0-45); TOTAL VOLUME 3100 mL
== END ==
LOC: LAB SHORT 08:30
PROVIDERS: Internal Medicine Endocrinology, Diabetes & Metabolism
DX: I15.9 Secondary hypertension, unspecified (principal)
CPT/HCPCS: 81050; 83835

== ENCOUNTER → 2024-02-20 | Outpatient (CLI) | payer MEDICARE ==
[~2024-02-20] MED LIST changes: +CEFD300 PO; +Pyridium200 MG PO
[2024-02-20 15:20] LABS: Appearance, Urine Clear (Clear); Blood, Urine Neg (Neg); Glucose Qualitative, Urine Neg (Neg); Ketones, Urine Neg (Neg); Leukocyte Esterase, Urine Neg (Neg); Nitrite, Urine Pos (Neg); Protein, Urine Neg (Neg); Urobilinogen, Urine 2+ (Normal)
[2024-02-20 15:25] LABS: Bilirubin, Urine 2+ (Neg); Color, Urine Orange (P-Yellow)
[2024-02-20 15:28] LABS: Bacteria Few /hpf; Red Blood Cells, Urine 0-2 /hpf (0-2); Squamous Epithelial Cells Few /hpf (Few); White Blood Cells, Urine 0-2 /hpf (0-5)
== END | disposition home or self-care (01) ==
LOC: LAB 12:54 → LAB SHORT 12:54
PROVIDERS: Urology
DX: N39.0 Urinary tract infection, site not specified (principal)
CPT/HCPCS: 81001; 87086

== ENCOUNTER → 2024-05-02 | Outpatient (CLI) | payer MEDICARE ==
[2024-05-02 14:16] LABS: Appearance, Urine Clear (Clear); Bilirubin, Urine Neg (Neg); Blood, Urine Neg (Neg); Color, Urine Yellow (P-Yellow); Glucose Qualitative, Urine Neg (Neg); Ketones, Urine Neg (Neg); Leukocyte Esterase, Urine 1+ (Neg); Nitrite, Urine Neg (Neg); Protein, Urine Neg (Neg); Urobilinogen, Urine NORM (Normal)
[2024-05-02 14:57] LABS: Bacteria Few /hpf; Red Blood Cells, Urine 0-2 /hpf (0-2); Squamous Epithelial Cells Few /hpf (Few)
== END ==
LOC: LAB SHORT 12:13 → LAB 12:13
PROVIDERS: Urology
DX: N39.0 Urinary tract infection, site not specified (principal)
CPT/HCPCS: 81001; 87086

== ENCOUNTER → 2024-05-16 | Outpatient (CLI) | payer MEDICARE | LOC: LAB 16:43 → LAB SHORT 16:43 | DX: J02.9 Acute pharyngitis, unspecified (principal) | CPT/HCPCS: 87081 ==

== ENCOUNTER → 2024-08-25 | Outpatient (CLI) | payer MEDICARE ==
[2024-08-25 18:05] LABS: Source, Urine Voided
[2024-08-25 19:02] LABS: Appearance, Urine Hazy (Clear); Bilirubin, Urine Neg (Neg); Blood, Urine 4+ (Neg); Glucose Qualitative, Urine Neg (Neg); Ketones, Urine Neg (Neg); Leukocyte Esterase, Urine 3+ (Neg); Nitrite, Urine Neg (Neg); Protein, Urine 2+ (Neg); Specific Gravity, Urine 1.015 (1.003-1.022); Urobilinogen, Urine NORM (Normal)
[2024-08-25 19:42] LABS: Color, Urine Pale Yellow (P-Yellow)
[2024-08-25 19:44] LABS: Bacteria Many /hpf; Hyaline Casts 0-2 /lpf (0-2); Squamous Epithelial Cells Few /hpf (Few); White Blood Cells, Urine 50-100 /hpf (0-5)
== END | disposition home or self-care (01) ==
LOC: LAB SHORT 18:02 → LAB 18:02
PROVIDERS: Urology
DX: N39.0 Urinary tract infection, site not specified (principal)
CPT/HCPCS: 81001; 87077; 87086; 87186

== ENCOUNTER → 2024-09-09 | Outpatient (CLI) | payer MEDICARE ==
[2024-09-09 13:38] LABS: Appearance, Urine Clear (Clear); Bilirubin, Urine Neg (Neg); Blood, Urine Neg (Neg); Color, Urine Yellow (P-Yellow); Glucose Qualitative, Urine Neg (Neg); Ketones, Urine Neg (Neg); Leukocyte Esterase, Urine Neg (Neg); Nitrite, Urine Neg (Neg); Protein, Urine Neg (Neg); Urobilinogen, Urine NORM (Normal)
== END | disposition home or self-care (01) ==
LOC: LAB 07:45 → LAB SHORT 07:45
PROVIDERS: Urology
DX: N39.0 Urinary tract infection, site not specified (principal)
CPT/HCPCS: 81003; 87086

== ENCOUNTER → 2024-09-16 | Outpatient (CLI) | payer MEDICARE ==
[2024-09-16 10:22] LABS: Source, Urine Voided
[2024-09-16 10:43] LABS: Appearance, Urine Hazy (Clear); Bilirubin, Urine Neg (Neg); Blood, Urine 2+ (Neg); Color, Urine Yellow (P-Yellow); Glucose Qualitative, Urine Neg (Neg); Ketones, Urine Neg (Neg); Leukocyte Esterase, Urine 3+ (Neg); Nitrite, Urine Neg (Neg); Protein, Urine 2+ (Neg); Specific Gravity, Urine 1.015 (1.003-1.022); Urobilinogen, Urine NORM (Normal)
[2024-09-16 10:54] LABS: Bacteria Many /hpf; Squamous Epithelial Cells Few /hpf (Few); White Blood Cells, Urine TNTC /hpf (0-5)
== END ==
LOC: LAB SHORT 10:19 → LAB 10:19
PROVIDERS: Urology
DX: N39.0 Urinary tract infection, site not specified (principal)
CPT/HCPCS: 81001; 87077; 87086; 87186

== ENCOUNTER → 2025-03-25 | Outpatient (CLI) | payer MEDICARE ==
[~2025-03-25] MED LIST changes: +CEFP200 PO
[2025-03-25 11:34] LABS: Appearance, Urine Hazy (Clear); Blood, Urine 2+ (Neg); Color, Urine Amber (P-Yellow); Glucose Qualitative, Urine Neg (Neg); Ketones, Urine Neg (Neg); Leukocyte Esterase, Urine 3+ (Neg); Nitrite, Urine Pos (Neg); Protein, Urine 2+ (Neg); Urobilinogen, Urine 2+ (Normal)
[2025-03-25 11:38] LABS: Bilirubin, Urine 2+ (Neg)
[2025-03-25 11:41] LABS: White Blood Cells, Urine 50-100 /hpf (0-5)
[2025-03-25 11:42] LABS: Bacteria Many /hpf; Squamous Epithelial Cells Few /hpf (Few)
== END ==
LOC: LAB 10:30 → LAB SHORT 10:30
PROVIDERS: Urology
DX: N39.0 Urinary tract infection, site not specified (principal)
CPT/HCPCS: 81001; 87077; 87086; 87186

== ENCOUNTER 2025-03-30 12:07 | Emergency (ER) | payer MEDICARE ==
[~2025-03-30] VITALS: Ht 167.6 cm; Wt 100.7 kg
[~2025-03-30 12:07] MED LIST changes: -CEFP200 PO
[2025-03-30 12:35] VITALS: BP 165/106
[2025-03-30] MEDS ORDERED: Ketorolac Tromethamine 15mg Vial IV ONE (12:40)
[2025-03-30 13:11] LABS: Source, Urine Clean Catch
[2025-03-30 13:15] LABS: BASOPHILS ABSOLUTE AUTO 0.09 K/mm3 (0.00-0.23); BASOPHILS PERCENT AUTO 1 % (0-2); EOSINOPHILS PERCENT AUTO 8 % (0-6); Hematocrit 36.8 % (33.0-51.0); IMMATURE GRAN ABSOLUTE AUTO 0.01 K/mm3 (0.00-0.10); IMMATURE GRAN PERCENT AUTO 0 % (0-1); LYMPHOCYTES ABSOLUTE AUTO 1.42 K/mm3 (0.84-5.20); LYMPHOCYTES PERCENT AUTO 22 % (21-46); MONOCYTES ABSOLUTE AUTO 0.55 K/mm3 (0.16-1.47); MONOCYTES PERCENT AUTO 8 % (4-13); Mean Corpuscular HGB 29.9 pg (26.0-34.0); Mean Corpuscular HGB Conc 32.6 g/dL (31.5-36.5); Mean Corpuscular Volume 92 fL (80-100); Mean Platelet Volume 9.5 fL (9.1-12.4); NEUTROPHILS ABSOLUTE AUTO 4.03 K/mm3 (1.96-9.15); NEUTROPHILS PERCENT AUTO 61 % (41-73); Platelet Count 261 K/mm3 (150-400); RDW Coefficient Variation 14.4 % (11.7-14.2); RDW Standard Deviation 48.4 fL (35.1-46.3); Red Blood Cell Count 4.02 M/mm3 (3.80-5.20)
[2025-03-30 13:19] LABS: Appearance, Urine Clear (Clear); Bilirubin, Urine Neg (Neg); Blood, Urine 5+ (Neg); Color, Urine Yellow (P-Yellow); Glucose Qualitative, Urine Neg (Neg); Ketones, Urine Neg (Neg); Leukocyte Esterase, Urine 3+ (Neg); Nitrite, Urine Neg (Neg); Protein, Urine 3+ (Neg); Specific Gravity, Urine 1.015 (1.003-1.022); Urobilinogen, Urine NORM (Normal)
[2025-03-30 13:31] LABS: White Blood Cells, Urine 0-2 /hpf (0-5)
[2025-03-30 13:32] LABS: Bacteria Rare /hpf; Red Blood Cells, Urine 0-2 /hpf (0-2); Squamous Epithelial Cells Rare /hpf (Few)
[2025-03-30 13:41] LABS: Albumin, Blood 4.3 g/dL (3.4-5.0); Albumin/Globulin Ratio 0.8 (0.8-1.8); Bilirubin, Total 0.4 mg/dL (0.1-1.0); Bun/Creatinine Ratio 19.6 (12.0-20.0); Calcium, Blood 9.2 mg/dL (8.5-10.1); Creatinine, Blood 0.76 mg/dL (0.40-1.00); Globulin, Blood 5.2 g/dL (2.2-4.0); Total Protein, Blood 9.5 g/dL (6.4-8.2)
[2025-03-30] MEDS ORDERED: CEFP200 PO ×2 (14:55→14:56)
[2025-03-30] MEDS ORDERED: Cranberry Extract 250MG W/30 MG Vitamin C Tab PO ONE (14:55)
[2025-03-30] MEDS ORDERED: Cefpodoxime Proxetil 200 MG Tab PO ONE (14:55)
== END 2025-03-30 15:28 | disposition home or self-care (01) ==
LOC: ER 12:07
PROVIDERS: Student in an Organized Health Care Education/Training Program
DX: N30.90 Cystitis, unspecified without hematuria (principal); I10 Essential (primary) hypertension; E03.9 Hypothyroidism, unspecified; E78.5 Hyperlipidemia, unspecified; F43.10 Post-traumatic stress disorder, unspecified; E11.9 Type 2 diabetes mellitus without complications; Z79.84 Long term (current) use of oral hypoglycemic drugs; Z79.899 Other long term (current) drug therapy; Z88.8 Allergy status to other drugs, medicaments and biological substances; Z79.890 Hormone replacement therapy
CPT/HCPCS: 76770; 80053; 81001; 85025; 87086; 96374; 99284-25; A9270; J1885

== ENCOUNTER → 2025-04-28 | Outpatient (CLI) | payer MEDICARE ==
[~2025-04-28] MED LIST changes: +CEFP200 PO
[2025-04-28 09:49] LABS: Source, Urine Clean Catch
[2025-04-28 10:57] LABS: Appearance, Urine Clear (Clear); Bilirubin, Urine Neg (Neg); Blood, Urine Neg (Neg); Color, Urine Yellow (P-Yellow); Glucose Qualitative, Urine Neg (Neg); Ketones, Urine Neg (Neg); Leukocyte Esterase, Urine Neg (Neg); Nitrite, Urine Neg (Neg); Protein, Urine Neg (Neg); Urobilinogen, Urine NORM (Normal)
== END ==
LOC: LAB SHORT 06:30 → LAB 06:30
PROVIDERS: Urology
DX: N39.0 Urinary tract infection, site not specified (principal)
CPT/HCPCS: 81003; 87086

== ENCOUNTER → 2025-06-24 | Outpatient (CLI) | payer MEDICARE ==
[~2025-06-24] MED LIST changes: +AMLO5 PO; +BANOPHEN50 MG PO; +C COMPLEX1000 M1 PO; +CIPR500 PO; +CO Q10100 MG PO; +DEXCOM G7 RECE1 EACH; +FAMO20 PO; +FISH OIL 1,0001 EA10 PO; +FLAXSEED OIL1000 M1 PO; +Flonase 0.05% N16 GM; +GLUCHON PO; +HYDRA50 PO; +INSULANI SC; +LISPRO SC; +LORA10ER PO; +MAGNESIUM CITR100 M1 PO; +MELA3 PO; +MULTI-VITAMIN1 EAC2 PO; +Millipred5 MG PO; +NITR.4SL SL; +PROBIOTIC1 EA14 PO; +SALT TABLET PO; +TELM40 PO; +THERA-D2000 UNIT PO; +TURMERIC500 M2 PO; +ZINC15 PO; +[UNRECOGNIZED DRUG - REMARK] PO
[2025-06-24 13:20] LABS: Bilirubin, Urine Neg (Neg); Color, Urine Yellow (P-Yellow); Glucose Qualitative, Urine Neg (Neg); Ketones, Urine Neg (Neg); Leukocyte Esterase, Urine 3+ (Neg); Protein, Urine 3+ (Neg); Specific Gravity, Urine 1.020 (1.003-1.022); Urobilinogen, Urine NORM (Normal)
[2025-06-24 13:41] LABS: Red Blood Cells, Urine 50-100 /hpf (0-2); White Blood Cells, Urine TNTC /hpf (0-5)
== END ==
LOC: LAB 12:51 → LAB SHORT 12:51
PROVIDERS: Urology
DX: N39.0 Urinary tract infection, site not specified (principal)
CPT/HCPCS: 81001; 87077; 87086; 87186

== ENCOUNTER 2025-06-29 07:52 | Day surgery (SDC) | payer MEDICARE ==
[~2025-06-29 07:52] MED LIST changes: -AMLO5 PO; -BANOPHEN50 MG PO; -C COMPLEX1000 M1 PO; -CIPR500 PO; -CO Q10100 MG PO; -DEXCOM G7 RECE1 EACH; -FAMO20 PO; -FISH OIL 1,0001 EA10 PO; -FLAXSEED OIL1000 M1 PO; -Flonase 0.05% N16 GM; -GLUCHON PO; -HYDRA50 PO; -INSULANI SC; -LISPRO SC; -LORA10ER PO; -MAGNESIUM CITR100 M1 PO; -MELA3 PO; -MULTI-VITAMIN1 EAC2 PO; -Millipred5 MG PO; -NITR.4SL SL; -PROBIOTIC1 EA14 PO; -SALT TABLET PO; +Sod Ferric Gluc Complx/Sucrose 125 MG in NS 100 ML IV SCH; -TELM40 PO; -THERA-D2000 UNIT PO; -TURMERIC500 M2 PO; -ZINC15 PO; -[UNRECOGNIZED DRUG - REMARK] PO
[2025-06-29 07:59] VITALS: BP 171/89
[2025-06-29] MEDS ORDERED: HYDCOR10 PO (08:16)
[2025-06-29] MEDS ORDERED: TELM40 PO (08:22)
[2025-06-29] MEDS ORDERED: HYDRA25 PO (08:22)
[2025-06-29] MEDS ORDERED: AMLO5 PO (08:23)
[2025-06-29] MEDS ORDERED: INSULANI SC (08:24)
[2025-06-29] MEDS ORDERED: LISPRO SC (08:30)
[2025-06-29] MEDS ORDERED: FAMO20 PO (08:31)
[2025-06-29] MEDS ORDERED: LORA10ER PO (08:31)
[2025-06-29] MEDS ORDERED: BANOPHEN50 MG PO (08:32)
[2025-06-29] MEDS ORDERED: DEXCOM G7 RECE1 EACH (08:34)
[2025-06-29] MEDS ORDERED: CODACE30 PO (08:36)
[2025-06-29] MEDS ORDERED: HYDRA50 PO (08:36)
[2025-06-29] MEDS ORDERED: NITR.4SL SL (08:37)
[2025-06-29] MEDS ORDERED: Flonase 0.05% N16 GM (08:38)
[2025-06-29] MEDS ORDERED: Millipred5 MG PO (08:40)
[2025-06-29] MEDS ORDERED: CIPR500 PO (08:42)
[2025-06-29 09:00] VITALS: BP 152/88
[2025-06-29] MEDS ORDERED: SALT TABLET PO (09:49)
[2025-06-29] MEDS ORDERED: MULTI-VITAMIN1 EAC2 PO (09:50)
[2025-06-29] MEDS ORDERED: ZINC15 PO (09:50)
[2025-06-29] MEDS ORDERED: CO Q10100 MG PO (09:50)
[2025-06-29] MEDS ORDERED: PROBIOTIC1 EA14 PO (09:51)
[2025-06-29] MEDS ORDERED: FISH OIL 1,0001 EA10 PO (09:51)
[2025-06-29] MEDS ORDERED: C COMPLEX1000 M1 PO (09:51)
[2025-06-29] MEDS ORDERED: GLUCHON PO (10:30)
[2025-06-29] MEDS ORDERED: [UNRECOGNIZED DRUG - REMARK] PO (10:30)
[2025-06-29] MEDS ORDERED: TURMERIC500 M2 PO (10:31)
[2025-06-29] MEDS ORDERED: MELA3 PO (10:31)
[2025-06-29] MEDS ORDERED: THERA-D2000 UNIT PO (10:34)
[2025-06-29] MEDS ORDERED: FLAXSEED OIL1000 M1 PO (10:47)
[2025-06-29] MEDS ORDERED: MAGNESIUM CITR100 M1 PO (10:48)
== END 2025-06-29 09:02 | disposition home or self-care (01) ==
LOC: ATC 07:52
DX: D50.9 Iron deficiency anemia, unspecified (principal); D47.2 Monoclonal gammopathy; Z79.4 Long term (current) use of insulin; Z79.82 Long term (current) use of aspirin; Z79.84 Long term (current) use of oral hypoglycemic drugs; Z79.890 Hormone replacement therapy; Z79.899 Other long term (current) drug therapy; Z88.8 Allergy status to other drugs, medicaments and biological substances; E11.9 Type 2 diabetes mellitus without complications; E78.5 Hyperlipidemia, unspecified; I10 Essential (primary) hypertension; K21.9 Gastro-esophageal reflux disease without esophagitis
CPT/HCPCS: 96365; J2916

== ENCOUNTER → 2025-07-09 | Outpatient (CLI) | payer MEDICARE ==
[~2025-07-09] MED LIST changes: +AMLO5 PO; +BANOPHEN50 MG PO; +C COMPLEX1000 M1 PO; +CIPR500 PO; +CO Q10100 MG PO; +DEXCOM G7 RECE1 EACH; +FAMO20 PO; +FISH OIL 1,0001 EA10 PO; +FLAXSEED OIL1000 M1 PO; +Flonase 0.05% N16 GM; +GLUCHON PO; +HYDRA50 PO; +INSULANI SC; +LISPRO SC; +LORA10ER PO; +MAGNESIUM CITR100 M1 PO; +MELA3 PO; +MULTI-VITAMIN1 EAC2 PO; +Millipred5 MG PO; +NITR.4SL SL; +PROBIOTIC1 EA14 PO; +SALT TABLET PO; -Sod Ferric Gluc Complx/Sucrose 125 MG in NS 100 ML IV SCH; +TELM40 PO; +THERA-D2000 UNIT PO; +TURMERIC500 M2 PO; +ZINC15 PO; +[UNRECOGNIZED DRUG - REMARK] PO
[2025-07-09 12:28] LABS: Source, Urine Clean Catch
[2025-07-09 12:41] LABS: Bilirubin, Urine Neg (Neg); Color, Urine Yellow (P-Yellow); Glucose Qualitative, Urine Neg (Neg); Ketones, Urine Neg (Neg); Leukocyte Esterase, Urine Neg (Neg); Protein, Urine Neg (Neg); Specific Gravity, Urine 1.010 (1.003-1.022); Urobilinogen, Urine NORM (Normal)
== END ==
LOC: LAB 10:15 → LAB SHORT 10:15
PROVIDERS: Urology
DX: N39.0 Urinary tract infection, site not specified (principal)
CPT/HCPCS: 81003; 87077; 87086; 87186

== ENCOUNTER 2025-07-13 02:29 | Day surgery (SDC) | payer MEDICARE ==
[~2025-07-13 02:29] MED LIST changes: +Sod Ferric Gluc Complx/Sucrose 125 MG in NS 100 ML IV SCH
[2025-07-13 14:50] VITALS: BP 126/67
== END 2025-07-13 15:56 | disposition home or self-care (01) ==
LOC: ATC 02:29
DX: D50.9 Iron deficiency anemia, unspecified (principal); D47.2 Monoclonal gammopathy; E11.9 Type 2 diabetes mellitus without complications; I10 Essential (primary) hypertension; E78.5 Hyperlipidemia, unspecified; K21.9 Gastro-esophageal reflux disease without esophagitis; E55.9 Vitamin D deficiency, unspecified; G89.29 Other chronic pain; M25.569 Pain in unspecified knee; E89.0 Postprocedural hypothyroidism; E66.9 Obesity, unspecified; Z79.4 Long term (current) use of insulin; Z79.82 Long term (current) use of aspirin; Z79.84 Long term (current) use of oral hypoglycemic drugs; Z79.890 Hormone replacement therapy; Z79.899 Other long term (current) drug therapy; Z88.8 Allergy status to other drugs, medicaments and biological substances
CPT/HCPCS: 96365; J2916

== ENCOUNTER 2025-07-20 03:22 | Day surgery (SDC) | payer MEDICARE ==
[2025-07-20 15:14] VITALS: BP 140/78
== END 2025-07-20 16:25 | disposition home or self-care (01) ==
LOC: ATC 03:22
DX: D50.9 Iron deficiency anemia, unspecified (principal); D47.2 Monoclonal gammopathy; I10 Essential (primary) hypertension; E11.9 Type 2 diabetes mellitus without complications; E78.5 Hyperlipidemia, unspecified; K21.9 Gastro-esophageal reflux disease without esophagitis; E89.0 Postprocedural hypothyroidism; Z79.82 Long term (current) use of aspirin; Z79.899 Other long term (current) drug therapy; Z88.8 Allergy status to other drugs, medicaments and biological substances; Z90.49 Acquired absence of other specified parts of digestive tract
CPT/HCPCS: 96365; J2916

== ENCOUNTER 2025-07-28 03:41 | Day surgery (SDC) | payer MEDICARE ==
[2025-07-28 15:00] VITALS: BP 140/78
== END 2025-07-28 16:04 | disposition home or self-care (01) ==
LOC: ATC 03:41
DX: D50.9 Iron deficiency anemia, unspecified (principal); D47.2 Monoclonal gammopathy; E11.9 Type 2 diabetes mellitus without complications; I10 Essential (primary) hypertension; E78.5 Hyperlipidemia, unspecified; K21.9 Gastro-esophageal reflux disease without esophagitis; E89.0 Postprocedural hypothyroidism; Z79.82 Long term (current) use of aspirin; Z79.890 Hormone replacement therapy; Z79.4 Long term (current) use of insulin; Z79.899 Other long term (current) drug therapy; Z88.8 Allergy status to other drugs, medicaments and biological substances; Z90.49 Acquired absence of other specified parts of digestive tract
CPT/HCPCS: 96365; J2916

== ENCOUNTER 2025-08-04 09:40 | Day surgery (SDC) | payer MEDICARE ==
[2025-08-04 15:59] VITALS: BP 131/80
== END 2025-08-04 17:02 | disposition home or self-care (01) ==
LOC: ATC 09:40
DX: D50.9 Iron deficiency anemia, unspecified (principal); D47.2 Monoclonal gammopathy; E11.9 Type 2 diabetes mellitus without complications; I10 Essential (primary) hypertension; E78.5 Hyperlipidemia, unspecified; K21.9 Gastro-esophageal reflux disease without esophagitis; E66.9 Obesity, unspecified; Z79.82 Long term (current) use of aspirin; Z79.4 Long term (current) use of insulin; Z79.899 Other long term (current) drug therapy; Z88.8 Allergy status to other drugs, medicaments and biological substances
CPT/HCPCS: 96365; J2916

== ENCOUNTER 2025-08-10 00:06 | Day surgery (SDC) | payer MEDICARE ==
[~2025-08-10 00:06] MED LIST changes: -Sod Ferric Gluc Complx/Sucrose 125 MG in NS 100 ML IV SCH
[2025-08-10] MEDS ORDERED: Sod Ferric Gluc Complx/Sucrose 125 MG in NS 100 ML IV SCH (01:00)
[2025-08-10 14:13] VITALS: BP 140/71
== END 2025-08-10 15:15 | disposition home or self-care (01) ==
LOC: ATC 00:06
DX: D50.9 Iron deficiency anemia, unspecified (principal); D47.2 Monoclonal gammopathy; E11.9 Type 2 diabetes mellitus without complications; I10 Essential (primary) hypertension; E78.5 Hyperlipidemia, unspecified; K21.9 Gastro-esophageal reflux disease without esophagitis; E55.9 Vitamin D deficiency, unspecified; E89.0 Postprocedural hypothyroidism; Z79.4 Long term (current) use of insulin; Z79.52 Long term (current) use of systemic steroids; Z79.82 Long term (current) use of aspirin; Z79.84 Long term (current) use of oral hypoglycemic drugs; Z79.890 Hormone replacement therapy; Z79.899 Other long term (current) drug therapy; Z88.8 Allergy status to other drugs, medicaments and biological substances
CPT/HCPCS: 96365; J2916

== ENCOUNTER 2025-08-16 04:04 | Day surgery (SDC) | payer MEDICARE ==
[~2025-08-16 04:04] MED LIST changes: +Sod Ferric Gluc Complx/Sucrose 125 MG in NS 100 ML IV SCH
[2025-08-16 10:11] VITALS: BP 133/72
== END 2025-08-16 11:16 | disposition home or self-care (01) ==
LOC: ATC 04:04
DX: D50.9 Iron deficiency anemia, unspecified (principal); D47.2 Monoclonal gammopathy; E11.9 Type 2 diabetes mellitus without complications; I10 Essential (primary) hypertension; E78.5 Hyperlipidemia, unspecified; K21.9 Gastro-esophageal reflux disease without esophagitis; E89.0 Postprocedural hypothyroidism; E66.9 Obesity, unspecified; Z79.4 Long term (current) use of insulin; Z79.82 Long term (current) use of aspirin; Z79.84 Long term (current) use of oral hypoglycemic drugs; Z79.890 Hormone replacement therapy; Z79.899 Other long term (current) drug therapy; Z88.8 Allergy status to other drugs, medicaments and biological substances
CPT/HCPCS: 96365; J2916

== ENCOUNTER → 2025-09-29 | Outpatient (CLI) | payer MEDICARE ==
[~2025-09-29] MED LIST changes: -Sod Ferric Gluc Complx/Sucrose 125 MG in NS 100 ML IV SCH
[2025-09-29 21:18] LABS: Bilirubin, Urine Neg (Neg); Glucose Qualitative, Urine Neg (Neg); Ketones, Urine Neg (Neg); Leukocyte Esterase, Urine Neg (Neg); Protein, Urine Neg (Neg); Specific Gravity, Urine 1.010 (1.003-1.022); Urobilinogen, Urine NORM (Normal)
[2025-09-29 21:30] LABS: Color, Urine Pale Yellow (P-Yellow)
== END | disposition home or self-care (01) ==
LOC: LAB SHORT 21:10 → LAB 21:10
PROVIDERS: Urology
DX: N39.0 Urinary tract infection, site not specified (principal)
CPT/HCPCS: 81003; 87086